=== PATIENT | female | born 1965 | race Hispanic/Latino ===

== ENCOUNTER → 2019-08-22 | Outpatient (CLI) | payer SELFPAY | END | disposition home or self-care (01) | LOC: RAH 11:06 | PROVIDERS: ATTEND Nurse Practitioner Adult Health | DX: Z13.6 Encounter for screening for cardiovascular disorders (principal) | CPT/HCPCS: 75571 ==

== ENCOUNTER 2024-01-26 07:29 | Day surgery (SDC) | payer BC ==
[2024-01-20 09:55] LABS: BASOPHILS # (AUTO) 0.03 K/uL (0.00-0.20); BASOPHILS % (AUTO) 0.3 % (0.0-5.0); EOSINOPHILS # (AUTO) 0.08 K/uL (0.00-0.70); EOSINOPHILS % (AUTO) 0.7 % (0.0-8.0); HEMATOCRIT 40.3 % (36-48); IMMATURE GRANULOCYTE ABSOLUTE 0.04 K/uL (0-1); LYMPHOCYTES # (AUTO) 2.4 K/uL (1.0-4.8); LYMPHOCYTES % (AUTO) 22.5 % (21.0-51.0); MEAN CORPUSCULAR HEMOGLOBIN 31.2 pg (27.0-33.0); MEAN CORPUSCULAR HGB CONC 34.5 g/dL (32.0-36.0); MEAN CORPUSCULAR VOLUME 90.6 fL (79-99); MONOCYTES # (AUTO) 0.6 K/uL (0.1-1.0); MONOCYTES % (AUTO) 5.5 % (3.0-13.0); NEUTROPHILS # (AUTO) 7.7 K/uL (1.8-7.7); NEUTROPHILS % (AUTO) 70.6 % (40.0-77.0); PLATELET COUNT (AUTO) 303 K/uL (130-400); RED BLOOD CELL COUNT(AUTO) 4.45 MIL/uL (4.00-5.50); RED CELL DISTRIBUTION WIDTH 12.7 % (11.0-15.5); WHITE BLOOD COUNT (AUTO) 10.9 K/uL (4.8-10.8)
[2024-01-20 09:56] LABS: CREATININE 0.7 mg/dL (0.5-1.0); POTASSIUM 3.7 mmol/L (3.5-5.1)
[2024-01-20 10:06] VITALS: BP 138/70; PULSE 92; RESP 18; TEMP 98.1
[2024-01-26] VITALS (17 sets, daily range): BP systolic 123–165; BP diastolic 68–80; PULSE 71–85; RESP 15–16; TEMP 97.1–97.9
[~2024-01-26] VITALS: Ht 157.5 cm; Wt 78.2 kg
[2024-01-26] MEDS: ceFAZolin SODIUM 2 GM VIAL IVPB SCH (07:00)
[~2024-01-26 07:29] MED LIST: ATOR10 PO; EMPA25TA PO; GLIM4TAB36 PO; LISI1TAB51 PO; METF-446 PO; METO-391 PO; TIRZ5PEN SQ
[2024-01-26] MEDS: 0.9%NACL 1000ML 1,000 ML IV ONE (07:56)
[2024-01-26] MEDS ORDERED: proPOFol 10 MG/ML 20ML VIAL IV ONE (12:48)
[2024-01-26] MEDS ORDERED: rocuRONium bROMide 10MG/1ML 5ML VL ONE (12:48)
[2024-01-26] MEDS ORDERED: FENTanyl CITRate PF 50 MCG/1 ML 2ML VIAL ONE ×2 (12:48→13:42)
[2024-01-26] MEDS ORDERED: LIDOCAINE PF 100MG/5ML (2%) SYRINGE 5ML ONE (12:48)
[2024-01-26] MEDS ORDERED: dexaMETHasone SOD PHOSPHATE 10MG/ML 1ML VIAL ONE (13:01)
[2024-01-26] MEDS ORDERED: ondanSETRON 4MG INJ ONE (13:01)
[2024-01-26] MEDS: ceFAZolin SODIUM 2 GM VIAL ONE (13:05)
[2024-01-26] MEDS ORDERED: ePHEDrine SULFate 50 MG/ML AMPULE ONE (13:18)
[2024-01-26] MEDS: ceFAZolin SODIUM 1 GM VIAL ONE (13:25)
[2024-01-26] MEDS: BUPIvacaine/PF 0.25% 30ML VIAL IJ ONE (14:04)
[2024-01-26] MEDS ORDERED: GLYCOPYRROLATE 0.2 MG/ML 5 ML VIAL ONE (14:09)
[2024-01-26] MEDS ORDERED: NEOSTIGMINE METHYLSULFATE 1MG/ML IV ONE (14:09)
[2024-01-26] MEDS ORDERED: HYDR-4060 PO (14:17)
[2024-01-26] MEDS ORDERED: CEPH500B PO (14:17)
--- NOTE | 2024-01-26 14:28 | OP ---
Operative Note: DATE OF PROCEDURE: 01/26/24 SURGEON: SAL VAN MD [employer] OPERATOR: [Myesha Urbina [facility]] ANESTHESIA: [General anesthesia] PREOPERATIVE DIAGNOSIS: [Recurrent trochanteric bursitis right hip] POSTOPERATIVE DIAGNOSIS: [Same] PROCEDURE: [Right hip tensor fascia iliaca release, bursectomy] ESTIMATED BLOOD LOSS: [50 mL] INDICATIONS: [Patient is a 58-year-old female with chronic pain to the right hip and the trochanteric area. The x-rays show the presence of a small spur in the area. The patient has been treated conservatively and a longer responded to treatment. The patient is being admitted for a tensor fascia iliaca release and bursectomy. Procedure understood, risks, benefits and possible complications and agreed to sign the consent form] DESCRIPTION OF PROCEDURE: [After adequate general anesthesia was achieved the patient was placed in the left lateral decubitus and the lower extremity was prepped and draped in the usual manner. After identification of the trochanteric area a small longitudinal incision was carried down centered on the greater trochanter through the skin followed by dissection of the subcutaneous tissue identifying the lateral aspect of the trochanter under the tensor fascia nidhi which was split longitudinally exposing the greater trochanter which was cover by a bursa, which was then excised, allowing us to explore the gluteus medius which was intact. The hip was internally and externally rotated noticing that the gluteus medius had no defects at the same time we remove the excess bursa in this area. The patient had the presence of a spur in the lower portion of the trochanter noticed on palpation and we proceeded to open the proximal portion of the the vastus lateralis longitudinally removing the portion of the spur located in the lateral aspect. After irrigation of the wound with antibiotic solution and with the use of Vicryl sutures #1 we proceeded to reapproximate the vastus lateralis. Range of motion of the hip was noted to be adequate and there was no rubbing against the greater trochanter. The wound was copiously irrigated with antibiotic solution. The hip was externally internally rotated noticing that there was no friction against the fascia nidhi and the trochanter. Marcaine quarter percent was then infiltrated in the subcutaneous tissue and the depth of the incision and the wound was then closed with #1 Vicryl for the deep subcutaneous tissue followed by closure of the superficial subcutaneous tissue with 2-0 Monocryl inverted stitches and the skin was closed with 3-0 Monocryl subcuticularly. Dermabond was applied to cover the incision followed by application of a soft dressing. The patient drapes were then removed and was taken to recovery room for follow-up anesthesia a fter being transferred to bed. There were no complications during the procedure] SAL VAN MD Jan 26, 2024 14:28
[2024-01-26] MEDS: MEPERIDINE-PF 25 MG/ML SYG ONE (15:06)
--- NOTE | 2024-01-26 17:17 | NUR ---
dressing dry clean intact dr fleming to come talk to pt and spouse given discharge orders verbally
== END 2024-01-26 17:20 | disposition home or self-care (01) ==
LOC: DAH 07:29
PROVIDERS: ATTEND Orthopaedic Surgery
DX: M70.61 Trochanteric bursitis, right hip (principal); M25.551 Pain in right hip; I10 Essential (primary) hypertension; E11.9 Type 2 diabetes mellitus without complications; E78.5 Hyperlipidemia, unspecified; Z79.899 Other long term (current) drug therapy
CPT/HCPCS: 80048; 85025; 36415; 27062; 97161; 82948 ×2; 97116; 97530 ×2; A4663; J7030 ×2; J3010 ×2; J0690 ×2; J1100; J0665; J3490 ×3; J2003; J2704; J2405; J2710; J2175; A4930; A6254; A5120; A4215; A4223; A4222; A4221; A4600